=== PATIENT | female | born 1990 | race Caucasian/White ===

== ENCOUNTER 2018-10-23 07:31 | Inpatient (IN) | payer OTHER ==
[~2018-10-23] VITALS: Ht 157.5 cm; Wt 3.2 kg
[~2018-10-23 07:31] MED LIST: PRENATAL CAPLE1 EACH PO
== END 2018-10-26 15:07 | disposition home or self-care (01) | DRG 785 ==
LOC: OB/GYN 07:31 → O/R 09:00 → OB/GYN 16:47
PROVIDERS: ADMIT Obstetrics & Gynecology
PROC: 0UL70ZZ Occlusion of Bilateral Fallopian Tubes, Open Approach (ICD-10-PCS; 2018-10-23)
PROC: 4A1HXCZ Monitoring of Products of Conception, Cardiac Rate, External Approach (ICD-10-PCS; 2018-10-23)
PROC: 10D00Z1 Extraction of Products of Conception, Low, Open Approach (ICD-10-PCS; principal; 2018-10-23 10:00)
DX: O34.211 Maternal care for low transverse scar from previous cesarean delivery (principal); O75.82 Onset (spontaneous) of labor after 37 completed weeks of gestation but before 39 completed weeks gestation, with delivery by (planned) cesarean section; Z3A.38 38 weeks gestation of pregnancy; Z37.0 Single live birth; Z30.2 Encounter for sterilization